=== PATIENT | male | born 1995 | race American Indian/Alaskan Native ===

== ENCOUNTER 2017-02-10 23:00 | Emergency (ER) | payer OTHER ==
[2017-02-11 03:30] LABS: Bacteria,Urine 4+ /HPF (Negative); Bilirubin,Urine NEG (Negative); Blood,Urine NEG (Negative); Ketones,Urine NEG (Negative); Leukocyte Esterase,Urine NEG (Negative); Mucus,Urine 2+ /HPF; Nitrite,Urine NEG (Negative); Sperm,Urine 1+ /HPF (NP); Urobilinogen,Urine < 2.0 mg/dL (<2.0)
--- NOTE | 2017-02-11 03:49 | Emergency Department Report ---
ED Male HPI - General Chief complaint: Urogenital-Male Stated complaint: LOWER ABD/PENILE PAIN Time Seen by Provider: 02/11/17 03:02 Source: patient Mode of arrival: Ambulatory Limitations: No Limitations - History of Present Illness Initial comments: 21y/o -[place] male comes in for complaint of testicular pain 3 days. Patient describes the pain as stinging. Denies any penile discharge denies any dysuria he reports it is worse with sitting and laying down and is very positional. She denies any fever chills no nausea no vomiting. Complaint: testicle pain - Related Data Home Medications Medication Instructions Recorded Confirmed Last Taken Econazole 1% [Spectazole] 1 applicatio TP BID 07/08/13 07/08/13 07/07/13 Lansoprazole (Nf) [Prevacid (Nf)] 30 mg PO QDAY 07/08/13 07/08/13 06/30/13 Previous Rx's Medication Instructions Recorded Last Taken Type hydrOXYzine HCL [Atarax] 50 mg PO TID PRN #30 tablet 07/08/13 Unknown Rx Magnesium Hydroxide [Milk of 400 mg PO QHS #150 ml 10/13/15 Unknown Rx Magnesia] Ranitidine HCl [Zantac 150 MG TAB] 150 mg PO BID #60 tablet 10/13/15 Unknown Rx Doxycycline [Vibramycin] 100 mg PO Q12HR #20 capsule 02/11/17 Unknown Rx Allergies Allergy/AdvReac Type Severity Reaction Status Date / Time No Known Allergies Allergy Verified 02/10/17 23:19 ED Review of Systems ROS: Stated complaint: LOWER ABD/PENILE PAIN Other details as noted in HPI Constitutional: denies: chills, fever Eyes: denies: eye pain, eye discharge, vision change ENT: denies: ear pain, throat pain Respiratory: denies: cough, shortness of breath, wheezing Cardiovascular: denies: chest pain, palpitations Endocrine: no symptoms reported Gastrointestinal: denies: abdominal pain, nausea, diarrhea Genitourinary: testicular pain Musculoskeletal: denies: back pain, joint swelling, arthralgia Skin: denies: rash, lesions Neurological: denies: headache, weakness, paresthesias ED Past Medical Hx - Past Medical History Previous Medical History?: No Additional medical history: Dyspepsia - Surgical History Past Surgical History?: No - Social History Smoking Status: Never Smoker Substance Use Type: None - Medications Home Medications: Home Medications Medication Instructions Recorded Confirmed Last Taken Type Econazole 1% [Spectazole] 1 applicatio TP BID 07/08/13 07/08/13 07/07/13 History Lansoprazole (Nf) [Prevacid (Nf)] 30 mg PO QDAY 07/08/13 07/08/13 06/30/13 History hydrOXYzine HCL [Atarax] 50 mg PO TID PRN #30 tablet 07/08/13 Unknown Rx Magnesium Hydroxide [Milk of 400 mg PO QHS #150 ml 10/13/15 Unknown Rx Magnesia] Ranitidine HCl [Zantac 150 MG TAB] 150 mg PO BID #60 tablet 10/13/15 Unknown Rx Doxycycline [Vibramycin] 100 mg PO Q12HR #20 capsule 02/11/17 Unknown Rx ED Physical Exam - General Limitations: No Limitations - Head Head exam: Present: atraumatic, normocephalic - Eye Eye exam: Present: normal appearance - ENT ENT exam: Present: mucous membranes moist - Neck Neck exam: Present: normal inspection - Respiratory Respiratory exam: Present: normal lung sounds bilaterally. Absent: respiratory distress - exam: Present: normal inspection, vertical testicular lie, circumcision. Absent: testicular tenderness, urethral discharge, scrotal swelling External exam: Present: other (left groin lymphadenopathy) - Extremities Exam Extremities exam: Present: normal inspection - Back Exam Back exam: Present: normal inspection - Neurological Exam Neurological exam: Present: alert, oriented X3 - Psychiatric Psychiatric exam: Present: normal affect, normal mood ED Course Vital Signs 02/10/17 23:20 Temperature 98.3 F Pulse Rate 65 Respiratory 16 Rate Blood Pressure 131/86 O2 Sat by Pulse 100 Oximetry ED Medical Decision Making - Radiology Data Radiology results: report reviewed, image reviewed FINDINGS: RIGHT TESTICLE: Size: 4 x 2.8 x 2.8 cm . Appearance: Normal size and echotexture . Arterial blood flow: Normal spectral waveforms, flow velocities and color flow images.. Venous blood flow: Normal spectral waveforms and color flow images. Right epididymis: Epididymis is enlarged. Echotexture is heterogeneous and complex.. Hydrocele: None . LEFT TESTICLE Size: 4.7 x 2.9 x 3.2 cm . Appearance: Normal size and echotexture . Arterial blood flow: Normal spectral waveforms, flow velocities and color flow images.. Venous blood flow: Normal spectral waveforms and color flow images. Leftepididymis: Epididymis is enlarged. Echotexture is heterogeneous and complex.. Hydrocele: None . IMPRESSION: The testicles are unremarkable. There is no torsion, mass or orchitis. There is bilateral epididymitis. There is no hydrocele or varicocele. Transcribed By: CO Dictated By: GREGORY LAZO MD Electronically Authenticated By: GREGORY LAZO MD Signed Date/Time: 02/11/17458 DD/ 8 TD/TT: 02/11/17458 - Medical Decision Making Patient has been evaluated by this provider in fast track. Urinalysis completed which has protein of 100 mg/dL testicular ultrasound has been ordered. Critical care attestation.: If time is entered above; I have spent that time in minutes in the direct care of this critically ill patient, excluding procedure time. ED Disposition Clinical Impression: Acute epididymitis Disposition: DISCHARGED TO HOME OR SELFCARE Is pt being admited?: No Does the pt Need Aspirin: No Condition: Stable Instructions: Epididymitis (ED), Sexually Transmitted Diseases (ED) Additional Instructions: Please complete antibiotics as prescribed. Follow-up with her primary care provider. Prescriptions: Doxycycline [Vibramycin] 100 mg PO Q12HR #20 capsule Referrals: PRIMARY CARE, [Primary Care Provider] - 3-5 Days Forms: STI Treatment and Prevention, Accompanied Note, Work/School Release Form (ED)
--- NOTE | 2017-02-11 05:03 | Ultrasound Report ---
FINAL REPORT PROCEDURE: US TESTICULAR DOPPLER COMP TECHNIQUE: Real-time morales-scale and color flow Doppler sonography in multiple planes of the scrotum, testicles, and epididymes was performed. Velocity spectral waveform analysis Doppler imaging of the arterial inflow and venous outflow of the testicles was performed with image documentation. CPT 17906 and 81784 HISTORY: testicular pain COMPARISON: No prior studies are available for comparison. FINDINGS: RIGHT TESTICLE: Size: 4 x 2.8 x 2.8 cm . Appearance: Normal size and echotexture . Arterial blood flow: Normal spectral waveforms, flow velocities and color flow images.. Venous blood flow: Normal spectral waveforms and color flow images. Right epididymis: Epididymis is enlarged. Echotexture is heterogeneous and complex.. Hydrocele: None . LEFT TESTICLE Size: 4.7 x 2.9 x 3.2 cm . Appearance: Normal size and echotexture . Arterial blood flow: Normal spectral waveforms, flow velocities and color flow images.. Venous blood flow: Normal spectral waveforms and color flow images. Leftepididymis: Epididymis is enlarged. Echotexture is heterogeneous and complex.. Hydrocele: None . IMPRESSION: The testicles are unremarkable. There is no torsion, mass or orchitis. There is bilateral epididymitis. There is no hydrocele or varicocele.
[2017-02-11] MEDS ORDERED: ZITHROMAX PO ONE (06:36)
[2017-02-11] MEDS ORDERED: XYLOCAINE 1% MPF 5 mL INFILTRATI ONE (06:36)
[2017-02-11] MEDS ORDERED: ROCEPHIN IM ONE (06:36)
[2017-02-11] MEDS ORDERED: MOTRIN PO ONE (06:46)
[2017-02-11 07:36] VITALS: BP 132/77
== END 2017-02-11 07:34 | disposition home or self-care (01) ==
LOC: ED 23:00
DX: N45.1 Epididymitis (principal)
CPT/HCPCS: 81001; 93975; 96372; 99284; J0696

== ENCOUNTER 2018-05-07 23:51 | Emergency (ER) | payer OTHER ==
[2018-05-08 01:53] LABS: Basophils % (Auto) 0.4 % (0.0-1.8); Eosinophils # (Auto) 0.1 K/mm3 (0.0-0.4); Eosinophils % (Auto) 1.6 % (0.0-4.3); Hematocrit 45.4 % (35.5-45.6); Hemoglobin 15.1 gm/dl (11.8-15.2); Lymphocytes # (Auto) 2.1 K/mm3 (1.2-5.4); Lymphocytes % (Auto) 33.5 % (13.4-35.0); Mean Corpuscular HGB Conc 33 % (32-34); Mean Corpuscular Hemoglobin 30 pg (28-32); Mean Corpuscular Volume 89 fl (84-94); Monocytes # (Auto) 0.6 K/mm3 (0.0-0.8); Monocytes % (Auto) 9.4 % (0.0-7.3); Platelet Count 210 K/mm3 (140-440); Red Blood Count 5.09 M/mm3 (3.65-5.03); Red Cell Distribution Width 13.9 % (13.2-15.2)
[2018-05-08 01:55] LABS: BUN/Creatinine Ratio 16; Blood Urea Nitrogen 11 mg/dL (9-20); Calcium 9.4 mg/dL (8.4-10.2); Hemolysis Index 5
--- NOTE | 2018-05-08 06:23 | Emergency Department Report ---
ED General Adult HPI - General Chief complaint: Nausea/Vomiting/Diarrhea Stated complaint: N/V Time Seen by Provider: 05/08/18 06:23 Source: patient Mode of arrival: Ambulatory Limitations: No Limitations - History of Present Illness Initial comments: This is a 22-year-old male who arrives with his mother. He states that he has been intermittently vomiting and having diarrhea although he's had none since arrival. He complains of epigastric pain. He states he has no history of reflux or GERD. However his mother immediately says that he has been on medicine for GERD and that he has bad reflux. He is not complaining of abdominal pain at this time. He said no signs of GI bleeding. The lips entirely comfortable. He tells me that indeed he has had a previous endoscopy. He does not know which aviation technician perform digital web findings were. -: Gradual, hour(s), days(s) Location: abdomen Radiation: non-radiation Severity scale (0 -10): 4 Consistency: intermittent, now resolved Improves with: none Worsens with: none Associated Symptoms: denies other symptoms, nausea/vomiting Treatments Prior to Arrival: none - Related Data Home Medications Medication Instructions Recorded Confirmed Last Taken Econazole 1% [Spectazole] 1 applicatio TP BID 07/08/13 07/08/13 07/07/13 Lansoprazole (Nf) [Prevacid (Nf)] 30 mg PO QDAY 07/08/13 07/08/13 06/30/13 Previous Rx's Medication Instructions Recorded Last Taken Type hydrOXYzine HCL [Atarax] 50 mg PO TID PRN #30 tablet 07/08/13 Unknown Rx Magnesium Hydroxide [Milk of 400 mg PO QHS #150 ml 10/13/15 Unknown Rx Magnesia] Ranitidine HCl [Zantac 150 MG TAB] 150 mg PO BID #60 tablet 10/13/15 Unknown Rx Doxycycline [Vibramycin] 100 mg PO Q12HR #20 capsule 02/11/17 Unknown Rx Lansoprazole [Prevacid] 15 mg PO BID #60 cap 05/08/18 Unknown Rx Ondansetron [Zofran Odt] 4 mg PO Q6H PRN #7 tab.rapdis 05/08/18 Unknown Rx Allergies Allergy/AdvReac Type Severity Reaction Status Date / Time No Known Allergies Allergy Verified 02/10/17 23:19 ED Review of Systems ROS: Stated complaint: N/V Other details as noted in HPI Constitutional: denies: chills, fever Eyes: denies: eye pain, eye discharge, vision change ENT: denies: ear pain, throat pain Respiratory: denies: cough, shortness of breath, wheezing Cardiovascular: denies: chest pain, palpitations Endocrine: no symptoms reported Gastrointestinal: abdominal pain, nausea, vomiting, diarrhea. denies: hematemesis, melena, hematochezia Genitourinary: denies: urgency, dysuria Musculoskeletal: denies: back pain, joint swelling, arthralgia Skin: denies: rash, lesions Neurological: denies: headache, weakness, paresthesias Psychiatric: denies: anxiety, depression Hematological/Lymphatic: denies: easy bleeding, easy bruising ED Past Medical Hx - Past Medical History Previous Medical History?: No Additional medical history: Dyspepsia. GERD - Surgical History Past Surgical History?: No - Social History Smoking Status: Never Smoker Substance Use Type: None - Medications Home Medications: Home Medications Medication Instructions Recorded Confirmed Last Taken Type Econazole 1% [Spectazole] 1 applicatio TP BID 07/08/13 07/08/13 07/07/13 History Lansoprazole (Nf) [Prevacid (Nf)] 30 mg PO QDAY 07/08/13 07/08/13 06/30/13 History hydrOXYzine HCL [Atarax] 50 mg PO TID PRN #30 tablet 07/08/13 Unknown Rx Magnesium Hydroxide [Milk of 400 mg PO QHS #150 ml 10/13/15 Unknown Rx Magnesia] Ranitidine HCl [Zantac 150 MG TAB] 150 mg PO BID #60 tablet 10/13/15 Unknown Rx Doxycycline [Vibramycin] 100 mg PO Q12HR #20 capsule 02/11/17 Unknown Rx Lansoprazole [Prevacid] 15 mg PO BID #60 cap 05/08/18 Unknown Rx Ondansetron [Zofran Odt] 4 mg PO Q6H PRN #7 tab.rapdis 05/08/18 Unknown Rx ED Physical Exam - General Limitations: No Limitations General appearance: alert, in no apparent distress - Head Head exam: Present: atraumatic, normocephalic - Eye Eye exam: Present: normal appearance. Absent: scleral icterus - ENT ENT exam: Present: mucous membranes moist - Neck Neck exam: Present: normal inspection - Respiratory Respiratory exam: Present: normal lung sounds bilaterally. Absent: respiratory distress - Cardiovascular Cardiovascular Exam: Present: regular rate, normal rhythm. Absent: systolic murmur, diastolic murmur, rubs, gallop - GI/Abdominal GI/Abdominal exam: Present: soft, normal bowel sounds. Absent: distended, tenderness, guarding, rebound, rigid, organomegaly, mass, bruit, pulsatile mass , hernia - Rectal Rectal exam: Present: deferred - Extremities Exam Extremities exam: Present: normal inspection - Back Exam Back exam: Present: normal inspection - Neurological Exam Neurological exam: Present: alert, oriented X3, CN II-XII intact. Absent: motor sensory deficit - Psychiatric Psychiatric exam: Present: normal affect, normal mood - Skin Skin exam: Present: warm, dry, intact, normal color. Absent: rash ED Course Vital Signs 05/07/18 05/08/18 05/08/18 23:55 04:33 06:43 Temperature 98.2 F 98.7 F Pulse Rate 70 52 L 64 Respiratory 18 18 18 Rate Blood Pressure 137/79 125/78 Blood Pressure 113/66 [Left] O2 Sat by Pulse 100 100 99 Oximetry 05/08/18 07:08 Temperature Pulse Rate Respiratory 16 Rate Blood Pressure Blood Pressure [Left] O2 Sat by Pulse 100 Oximetry - Reevaluation(s) Reevaluation #1: Patient had entirely normal laboratory study. His abdominal exam and vital signs are normal. He does not require any further medical screening at this time. He will be placed on a proton inhibitor given Zofran for when necessary use. He is referred back to his aviation technician. 05/08/18 07:19 ED Medical Decision Making - Lab Data Result diagrams: 05/08/18 01:32 05/08/18 01:32 Laboratory Results - last 24 hr 05/08/18 05/08/18 01:32 01:32 WBC 6.2 RBC 5.09 H Hgb 15.1 Hct 45.4 MCV 89 MCH 30 MCHC 33 RDW 13.9 Plt Count 210 Lymph % (Auto) 33.5 [place] % (Auto) 9.4 H Eos % (Auto) 1.6 Baso % (Auto) 0.4 Lymph # 2.1 [place] # 0.6 Eos # 0.1 Baso # 0.0 Seg Neutrophils % 55.1 Seg Neutrophils # 3.4 Sodium 139 Potassium 3.6 Chloride 100.3 Carbon Dioxide 28 Anion Gap 14 BUN 11 Creatinine 0.7 L Estimated GFR > 60 BUN/Creatinine Ratio 16 Glucose 105 H Calcium 9.4 Critical care attestation.: If time is entered above; I have spent that time in minutes in the direct care of this critically ill patient, excluding procedure time. ED Disposition Clinical Impression: Abdominal pain Qualifiers: Abdominal location: epigastric Qualified Code(s): R10.13 - Epigastric pain Gastritis Qualifiers: Gastritis type: unspecified gastritis Chronicity: acute Gastritis bleeding: without bleeding Qualified Code(s): K29.00 - Acute gastritis without bleeding Disposition: OP ADMIT IP TO THIS HOSP Is pt being admited?: No Does the pt Need Aspirin: No Condition: Stable Instructions: Acute Abdominal Pain (ED), Gastritis (ED) Additional Instructions: Avoid stomach irritation's which include aspirin, Advil, alcohol, spicy food. Follow-up with the usual aviation technician. Rx as directed. Return any acute change or problem. Prescriptions: Lansoprazole [Prevacid] 15 mg PO BID #60 cap Ondansetron [Zofran Odt] 4 mg PO Q6H PRN #7 tab.rapdis PRN Reason: Nausea Referrals: CHEPE GENTILE JR, MD [Primary Care Provider] - 3-5 Days Time of Disposition: 07:21
[2018-05-08] MEDS ORDERED: ZOFRAN ODT PO ONE (06:25)
[2018-05-08 07:43] VITALS: BP 106/55
== END 2018-05-08 07:42 | disposition admitted as inpatient to this hospital (09) ==
LOC: ED 23:51
DX: K29.00 Acute gastritis without bleeding (principal); K21.9 Gastro-esophageal reflux disease without esophagitis
CPT/HCPCS: 36415; 80048; 85025; 99283; Q0162